=== PATIENT | male | born 1960 | race Caucasian/White ===

== ENCOUNTER → 2020-06-04 | Outpatient (CLI) | payer BC | END | disposition home or self-care (01) | LOC: COVID19 12:33 | PROVIDERS: ATTEND Internal Medicine | DX: U07.1 COVID-19 (principal) ==

== ENCOUNTER 2020-09-06 11:02 | Inpatient (IN) | payer BC ==
[~2020-09-06] VITALS: Ht 175.3 cm; Wt 75.0 kg
[2020-09-06 11:07] VITALS: BP 134/82
[2020-09-06 13:23] LABS: BASO # 0.1 10*3/uL (0.0-0.1); BASO % 0.6 % (0.0-1.0); EOS # 0.1 10*3/uL (0.0-0.4); EOS % 0.7 % (1.0-4.0); HEMATOCRIT 49.7 % (42.0-52.0); LYMPH % 16.8 % (27.0-41.0); MEAN CELL VOLUME 95.8 fl (80.0-94.0); MEAN CORPUSCULAR HGB 32.6 pg (27.0-31.0); MONO # 1.2 10*3/uL (0.1-1.0); MONO % 9.7 % (3.0-9.0); NEUT # 8.7 10*3/uL (2.3-7.9); PLATELET COUNT AUTOMATED 333 10*3/uL (130-400); RED BLOOD COUNT 5.19 10*6/uL (4.50-5.90); RED CELL DISTRI WIDTH 14.2 % (0-14.5); WHITE BLOOD COUNT 12.1 10*3/uL (4.8-10.8)
[2020-09-06 14:00] LABS: ALKALINE PHOSPHATASE 88 U/L (45-117); BUN 18 mg/dl (7-24); CHLORIDE 108 mmol/L (98-107); CREATININE 0.82 mg/dL (0.70-1.30); POTASSIUM 3.9 mmol/L (3.5-5.1); SGOT/AST 19 IU/L (3-35); SGPT/ALT 30 U/L (12-78); SODIUM 138 mmol/L (136-145); TOTAL PROTEIN 7.6 gm/dL (6.4-8.2)
[2020-09-06 16:08] VITALS: BP 132/77
[2020-09-06] MEDS ORDERED: ACID REDUCER20 MG PO (17:42)
[2020-09-06 21:06] VITALS: BP 127/73
[2020-09-07] VITALS (12 sets, daily range): BP systolic 114–145; BP diastolic 63–93
[2020-09-07 06:32] LABS: BASO # 0.1 10*3/uL (0.0-0.1); BASO % 0.8 % (0.0-1.0); EOS # 0.5 10*3/uL (0.0-0.4); EOS % 4.9 % (1.0-4.0); HEMATOCRIT 45.6 % (42.0-52.0); LYMPH # 2.4 10*3/uL (1.3-4.4); LYMPH % 25.9 % (27.0-41.0); MEAN CELL VOLUME 95.6 fl (80.0-94.0); MEAN CORPUSCULAR HGB 32.5 pg (27.0-31.0); MONO # 1.1 10*3/uL (0.1-1.0); NEUT # 5.2 10*3/uL (2.3-7.9); NEUT % 56.1 % (47.0-73.0); PLATELET COUNT AUTOMATED 302 10*3/uL (130-400); RED BLOOD COUNT 4.77 10*6/uL (4.50-5.90); RED CELL DISTRI WIDTH 14.2 % (0-14.5); WHITE BLOOD COUNT 9.2 10*3/uL (4.8-10.8)
[2020-09-07 06:42] LABS: BUN 25 mg/dl (7-24); CHLORIDE 110 mmol/L (98-107); CHOLESTEROL 176 mg/dL (<200); CREATININE 0.76 mg/dL (0.70-1.30); POTASSIUM 3.8 mmol/L (3.5-5.1); SODIUM 139 mmol/L (136-145); TRIGLYCERIDES 111 mg/dl (<150); VLDL CHOLESTEROL 22 mg/dL (6-40)
[2020-09-07 06:43] LABS: HDL CHOLESTEROL 41 mg/dl (40-60); LDL CHOLESTEROL 113 mg/dL (9-159)
[2020-09-07 07:21] LABS: VITAMIN D, 25-HYDROXY 18.1 ng/mL (30-100)
[2020-09-08] VITALS: BP 136/74
[2020-09-08 07:21] LABS: BASO % 0.1 % (0.0-1.0); HEMATOCRIT 43.7 % (42.0-52.0); LYMPH # 1.7 10*3/uL (1.3-4.4); MEAN CELL VOLUME 94.4 fl (80.0-94.0); MEAN CORPUSCULAR HGB 32.6 pg (27.0-31.0); MEAN CORPUSCULAR HGB CONC 34.6 g/dl (33.0-37.0); MONO # 1.2 10*3/uL (0.1-1.0); MONO % 7.2 % (3.0-9.0); NEUT # 13.9 10*3/uL (2.3-7.9); NEUT % 82.3 % (47.0-73.0); PLATELET COUNT AUTOMATED 298 10*3/uL (130-400); RED BLOOD COUNT 4.63 10*6/uL (4.50-5.90); RED CELL DISTRI WIDTH 13.7 % (0-14.5); WHITE BLOOD COUNT 16.8 10*3/uL (4.8-10.8)
[2020-09-08 08:00] VITALS: BP 128/89
[2020-09-08] MEDS ORDERED: ASPIRIN ADULT L81 M2 PO (11:15)
[2020-09-08] MEDS ORDERED: VITAMIN D350 MC2 PO (11:15)
[2020-09-08] MEDS ORDERED: HYDROCODONE-AC1 EAC1 PO (11:15)
[2020-09-08] MEDS ORDERED: VITAMIN B-12100 MCG PO (11:15)
[2020-09-08 12:00] VITALS: BP 134/78
== END 2020-09-08 14:20 | disposition home health service (06) | DRG 482 ==
LOC: ED 11:02 → 5E 13:03 → EDHOLD 13:03 → 5E 19:56
PROVIDERS: Internal Medicine; Orthopaedic Surgery; Physician Assistant; ADMIT Family Medicine; ATTEND Family Medicine
PROC: 0QS604Z Reposition Right Upper Femur with Internal Fixation Device, Open Approach (ICD-10-PCS; principal; 2020-09-06)
DX: S72.144A Nondisplaced intertrochanteric fracture of right femur, initial encounter for closed fracture (principal); F17.210 Nicotine dependence, cigarettes, uncomplicated; E87.8 Other disorders of electrolyte and fluid balance, not elsewhere classified; D72.829 Elevated white blood cell count, unspecified; D75.89 Other specified diseases of blood and blood-forming organs; Z71.6 Tobacco abuse counseling; W01.0XXA Fall on same level from slipping, tripping and stumbling without subsequent striking against object, initial encounter; Y93.89 Activity, other specified; Y92.89 Other specified places as the place of occurrence of the external cause; Y99.8 Other external cause status; Z20.822 Contact with and (suspected) exposure to COVID-19

== ENCOUNTER → 2020-09-21 | Outpatient (CLI) | payer BC ==
[~2020-09-21] MED LIST: ACID REDUCER20 MG PO; ASPIRIN ADULT L81 M2 PO; HYDROCODONE-AC1 EAC1 PO; VITAMIN B-12100 MCG PO; VITAMIN D350 MC2 PO
== END | disposition home or self-care (01) ==
LOC: ORTHO 02:18
PROVIDERS: ATTEND Orthopaedic Surgery
DX: S72.144D Nondisplaced intertrochanteric fracture of right femur, subsequent encounter for closed fracture with routine healing (principal); X58.XXXD Exposure to other specified factors, subsequent encounter

== ENCOUNTER → 2023-04-09 | Outpatient (CLI) | payer BC ==
[2023-04-09 11:48] LABS: BILIRUBIN Negative (Negative); BLOOD Trace-Intact (Negative); CLARITY Clear (Clear); COLOR Yellow (Yellow); GLUCOSE Negative (Negative); KETONE Negative (Negative); LEUKO ESTERASE Negative (Negative); NITRITE Negative (Negative); PH 6.5 (4.5-8.0)
[2023-04-09 11:49] LABS: BASO # 0.1 10*3/uL (0.0-0.1); BASO % 1.4 % (0.0-1.0); EOS # 0.4 10*3/uL (0.0-0.4); HEMATOCRIT 52.6 % (42.0-52.0); LYMPH # 3.1 10*3/uL (1.3-4.4); LYMPH % 40.8 % (27.0-41.0); MEAN CELL VOLUME 96.7 fl (80.0-94.0); MEAN CORPUSCULAR HGB 33.1 pg (27.0-31.0); MEAN CORPUSCULAR HGB CONC 34.2 g/dl (33.0-37.0); MONO # 0.7 10*3/uL (0.1-1.0); MONO % 9.6 % (3.0-9.0); NEUT # 3.3 10*3/uL (2.3-7.9); NEUT % 42.9 % (47.0-73.0); PLATELET COUNT AUTOMATED 385 10*3/uL (130-400); RED BLOOD COUNT 5.44 10*6/uL (4.50-5.90); RED CELL DISTRI WIDTH 14.6 % (0-14.5); RETICULOCYTE % 1.68 % (0.50-2.50); WHITE BLOOD COUNT 7.6 10*3/uL (4.8-10.8)
[2023-04-09 12:28] LABS: ALKALINE PHOSPHATASE 96 U/L (46-116); BUN 15 mg/dl (9-23); CHLORIDE 108 mmol/L (98-107); CHOLESTEROL 210 mg/dL (<200); GAMMA GLUTAMYL TRANSPEPTIDASE 23 U/L (0-73); LDL CHOLESTEROL 139 mg/dL (9-159); POTASSIUM 4.2 mmol/L (3.4-5.1); SGPT/ALT 20 U/L (10-49); T3 UPTAKE 28.7 % (22.4-36.7); THYROXINE (T4) TOTAL 5.2 ug/dl (4.5-10.9); TOTAL PROTEIN 7.6 gm/dL (6.0-8.0); TRIGLYCERIDES 102 mg/dl (<150); URIC ACID 6.4 mg/dL (3.7-9.2)
[2023-04-09 12:29] LABS: VITAMIN D, 25-HYDROXY 36.2 ng/mL (30-100)
[2023-04-09 12:51] LABS: BACTERIA TRACE; EPITHELIAL CELLS 0-2
[2023-04-10 13:06] LABS: ANTI-DSDNA ANTIBODIES 3 IU/mL (0-9)
== END | disposition home or self-care (01) ==
LOC: LAB 11:26
PROVIDERS: ATTEND Family Medicine
DX: M20.12 Hallux valgus (acquired), left foot (principal); M20.11 Hallux valgus (acquired), right foot; M25.775 Osteophyte, left foot; M19.071 Primary osteoarthritis, right ankle and foot; R79.89 Other specified abnormal findings of blood chemistry; R53.83 Other fatigue; E55.9 Vitamin D deficiency, unspecified; E78.5 Hyperlipidemia, unspecified; R06.02 Shortness of breath